=== PATIENT | male | born 1960 | race African-American/Black ===

== ENCOUNTER 2017-02-04 08:58 | Inpatient (IN) | payer OTHER ==
[2017-02-04 09:23] VITALS: BMI 23.3
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
[2017-02-04] MEDS ORDERED: MAG HYDROX/AL HYDROX/SIMETH 30 ML UNIT-DOSE CUP PO PRN (09:38)
[2017-02-04] MEDS ORDERED: IBUPROFEN 400 MG TABLET (FP) PO PRN (09:38)
[2017-02-04] MEDS ORDERED: MAGNESIUM HYDROX 2400MG/30ML ORAL SUSPENSION 30 ML CUP PO PRN (09:38)
[2017-02-04] MEDS ORDERED: ACETAMINOPHEN 325 MG TABLET (FP) PO PRN (09:38)
[2017-02-04] MEDS ORDERED: guaiFENesin/D-METHORPHAN HB 10 ML UNIT-DOSE CUPS PO PRN (09:38)
[2017-02-04] MEDS ORDERED: LOPERAMIDE HCL 2 MG CAPSULE PO PRN (09:38)
[2017-02-04] MEDS ORDERED: P-EPHED 60MG/TRIPROLIDI 2.5MG TABLET PO PRN (09:38)
[2017-02-04] MEDS ORDERED: MAGNESIUM CITRATE 300 ML BOTTLE PO PRN (09:38)
[2017-02-04] MEDS ORDERED: diphenhydrAMINE HCL 50 MG CAPSULE PO PRN (09:38)
[2017-02-04] MEDS ORDERED: chlordiazePOXIDE HCL 25 MG CAPSULE PO ONE (09:38)
[2017-02-04] MEDS ORDERED: MENTHOL/PHENOL 1 EACH UD MM PRN (09:38)
[2017-02-04] MEDS ORDERED: chlordiazePOXIDE HCL 25 MG CAPSULE PO PRN (09:38)
[2017-02-04] MEDS ORDERED: hydrOXYzine PAMOATE 25 MG CAPSULE (FP) PO PRN (09:38)
[2017-02-04] MEDS: PRENATAL VITAMINS W/ FOLIC ACID TABLET (FP) PO SCH (13:42)
[2017-02-04 13:57] LABS: URINE APPEARANCE CLEAR; URINE BILIRUBIN NEGATIVE (NEGATIVE); URINE BLOOD NEGATIVE (NEGATIVE); URINE COLOR YELLOW; URINE GLUCOSE (UA) NEGATIVE (NEGATIVE); URINE KETONE NEGATIVE (NEGATIVE); URINE LEUK ESTERASE NEGATIVE (NEGATIVE); URINE NITRITE NEGATIVE (NEGATIVE); URINE UROBILINOGEN NEGATIVE E.U./dl (0.2-1.0)
[2017-02-04 14:01] LABS: URINE PROTEIN 1+ (NEGATIVE)
[2017-02-04 14:04] LABS: URINE MUCUS RARE; URINE RBC 1 /hpf (0-3); URINE WBC 2 /hpf (3-5)
[2017-02-04] MEDS: chlordiazePOXIDE HCL 25 MG CAPSULE PO SCH ×2 (17:55→22:31)
[2017-02-04] MEDS ORDERED: THIAMINE HCL 100 MG TABLET (FP) PO SCH (22:00)
[2017-02-05] MEDS: chlordiazePOXIDE HCL 25 MG CAPSULE PO SCH ×2 (05:36→11:02)
[2017-02-05 10:48] LABS: MCH 30.7 pg (25.7-33.7); MCHC 33.2 g/dl (32.0-35.9); MEAN CELL VOLUME 92.3 fl (80-96); MEAN PLT VOLUME 8.8 fl (7.5-11.1); PLATELET COUNT 217 K/MM3 (134-434); RDW 16.6 % (11.9-15.9); WHITE BLOOD COUNT 5.2 K/mm3 (4.0-10.0)
[2017-02-05] MEDS: PRENATAL VITAMINS W/ FOLIC ACID TABLET (FP) PO SCH (11:02)
[2017-02-05 11:14] LABS: ALBUMIN 2.9 g/dl (3.4-5.0); ALK PHOS 77 U/L (45-117); ANION GAP 7 (8-16); BILIRUBIN,TOTAL 0.6 mg/dL (0.2-1.0); CALCIUM 8.5 mg/dL (8.5-10.1); CO2 27 mmol/L (21-32); COCKROFT - GAULT 126.16; CREATININE 0.7 mg/dL (0.7-1.3); GLUCOSE,RANDOM 88 mg/dL (74-106); SGOT/AST 29 U/L (15-37); SGPT/ALT 25 U/L (12-78); TOT PROT 5.8 g/dl (6.4-8.2)
--- NOTE | 2017-02-05 13:19 | PN ---
S CIWA - CIWA Score Nausea/Vomitin Muscle Tremors: 3 Anxiety: 3 Agitation: 3 Paroxysmal Sweats: 2 Orientation: 0-Oriented Tacttile Disturbances: 1-Very Mild Itch/Numbness Auditory Disturbances: 1-Very Mild Visual Disturbances: 1-Very Mild Sensitivity Headache: 2-Mild CIWA-Ar Total Score: 19 S Progress Note (SOAP) Subjective: ALERT,IRRITABLE,ANXIOUS,INTERRUPTED SLEEP,TREMOR,PAIN IN THE BODY Objective: 02/05/17 13:17 Vital Signs Temperature 96.9 F L 02/05/17 10:45 Pulse Rate 81 02/05/17 10:45 Respiratory Rate 18 02/05/17 10:45 Blood Pressure 139/89 02/05/17 10:45 O2 Sat by Pulse Oximetry (%) EKG NSR,INVERTED T IN V4 NO CHEST PAIN,NO SOB,NO DIZZINESS Laboratory Last Values WBC 5.2 K/mm3 (4.0-10.0) 02/05/17 08:00 RBC 3.90 M/mm3 (4.00-5.60) L 02/05/17 08:00 Hgb 12.0 GM/dL (11.7-16.9) 02/05/17 08:00 Hct 36.0 % (35.4-49) 02/05/17 08:00 MCV 92.3 fl (80-96) 02/05/17 08:00 MCHC 33.2 g/dl (32.0-35.9) 02/05/17 08:00 RDW 16.6 % (11.9-15.9) H 02/05/17 08:00 Plt Count 217 K/MM3 (134-434) D 02/05/17 08:00 MPV 8.8 fl (7.5-11.1) D 02/05/17 08:00 Sodium 142 mmol/L (136-145) 02/05/17 08:00 Potassium 4.0 mmol/L (3.5-5.1) 02/05/17 08:00 Chloride 108 mmol/L (98-107) H 02/05/17 08:00 Carbon Dioxide 27 mmol/L (21-32) 02/05/17 08:00 Anion Gap 7 (8-16) L 02/05/17 08:00 BUN 13 mg/dL (7-18) 02/05/17 08:00 Creatinine 0.7 mg/dL (0.7-1.3) D 02/05/17 08:00 Creat Clearance w eGFR > 60 (>60) 02/05/17 08:00 Random Glucose 88 mg/dL (74-106) D 02/05/17 08:00 Calcium 8.5 mg/dL (8.5-10.1) 02/05/17 08:00 Total Bilirubin 0.6 mg/dL (0.2-1.0) 02/05/17 08:00 AST 29 U/L (15-37) D 02/05/17 08:00 ALT 25 U/L (12-78) D 02/05/17 08:00 Alkaline Phosphatase 77 U/L (45-117) 02/05/17 08:00 Total Protein 5.8 g/dl (6.4-8.2) L D 02/05/17 08:00 Albumin 2.9 g/dl (3.4-5.0) L D 02/05/17 08:00 Urine Color Yellow 02/04/17 13:10 Urine Appearance Clear 02/04/17 13:10 Urine pH 6.0 (5.0-8.0) 02/04/17 13:10 Ur Specific [place] 1.029 (1.001-1.035) 02/04/17 13:10 Urine Protein 1+ (NEGATIVE) H 02/04/17 13:10 Urine Glucose (UA) Negative (NEGATIVE) 02/04/17 13:10 Urine Ketones Negative (NEGATIVE) 02/04/17 13:10 Urine Blood Negative (NEGATIVE) 02/04/17 13:10 Urine Nitrite Negative (NEGATIVE) 02/04/17 13:10 Urine Bilirubin Negative (NEGATIVE) 02/04/17 13:10 Urine Urobilinogen Negative E.U./dl (0.2-1.0) 02/04/17 13:10 Ur Leukocyte Esterase Negative (NEGATIVE) 02/04/17 13:10 Urine RBC 1 /hpf (0-3) 02/04/17 13:10 Urine WBC 2 /hpf (3-5) 02/04/17 13:10 Ur Epithelial Cells Rare /hpf (FEW) 02/04/17 13:10 Urine Mucus Rare 02/04/17 13:10 RPR Titer Nonreactive (NONREACTIVE) 02/05/17 08:00 Assessment: 02/05/17 13:18 WITHDRAWAL SYMPTOM Plan: CONTINUE DETOX
[2017-02-05] MEDS ORDERED: chlordiazePOXIDE HCL 25 MG CAPSULE PO SCH (17:00)
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
[2017-02-05 18:55] VITALS: BP 124/70; PULSE 68; TEMP 98.6
--- NOTE | 2017-02-05 19:31 | DS ---
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 ON UNIT, ADMINISTRATIVE DISCHARGE,ESCORTED OFF UNIT BY SECURITIES Pertinent Past History: NICOTINE DEPENDENCE - Physical Exam Results Vital Signs: Vital Signs Temperature 98.6 F 02/05/17 18:55 Pulse Rate 68 02/05/17 18:55 Respiratory Rate 18 02/05/17 18:55 Blood Pressure 124/70 02/05/17 18:55 O2 Sat by Pulse Oximetry (%) Pertinent Admission Physical Exam Findings: WITHDRAWAL SYMPTOM - Medication Discharge Medications: Ambulatory Orders NK [No Known Home Medication] 10/05/16 - Diagnosis (1) Cannabis dependence Current Visit: Yes Status: Acute (2) Alcohol dependence with uncomplicated withdrawal Current Visit: Yes Status: Chronic (3) Nicotine dependence Current Visit: Yes Status: Chronic Qualifiers: Nicotine product type: cigarettes Substance use status: uncomplicated Qualified Code(s): F17.210 - Nicotine dependence, cigarettes, uncomplicated - AMA Did Patient Leave Against Medical Advice: No
[2017-02-06] MEDS ORDERED: chlordiazePOXIDE 5 MG CAPSULE PO SCH (17:00)
--- NOTE | 2017-02-06 17:33 | EKG ---
Test Reason : Blood Pressure : / mmHG Vent. Rate : 070 BPM Atrial Rate : 070 BPM P-R Int : 174 ms QRS Dur : 124 ms QT Int : 402 ms P-R-T Axes : 056 -15 032 degrees QTc Int : 434 ms NORMAL SINUS RHYTHM NON-SPECIFIC INTRA-VENTRICULAR CONDUCTION DELAY NONSPECIFIC T WAVE ABNORMALITY ABNORMAL ECG WHEN COMPARED WITH ECG OF 04-FEB-2017 12:49, NO SIGNIFICANT CHANGE WAS FOUND Confirmed by NAN PENN, LEXIE ([id number]) on 02/06/2017 5:33:05 PM Referred By: Martin Simons Confirmed By:LEXIE MONTANA MD
--- NOTE | 2017-02-06 17:34 | EKG ---
Test Reason : Blood Pressure : / mmHG Vent. Rate : 054 BPM Atrial Rate : 107 BPM P-R Int : 164 ms QRS Dur : 112 ms QT Int : 418 ms P-R-T Axes : 055 007 030 degrees QTc Int : 396 ms SINUS BRADYCARDIA T WAVE ABNORMALITY, CONSIDER ANTERIOR ISCHEMIA ABNORMAL ECG NO PREVIOUS ECGS AVAILABLE CLINICAL CORRELATION IS RECOMMENDED Confirmed by NAN PENN, LEXIE ([id number]) on 02/06/2017 5:33:52 PM Referred By: Confirmed By:LEXIE MONTANA MD
[2017-02-07] MEDS ORDERED: chlordiazePOXIDE HCL 10 MG CAPSULE PO SCH (17:00)
== END 2017-02-05 18:40 | disposition home or self-care (01) | DRG 775 ==
LOC: YASAS 08:58 → Y6N 11:52
PROVIDERS: ADMIT Internal Medicine; ATTEND Internal Medicine Addiction Medicine
PROC: HZ2ZZZZ Detoxification Services for Substance Abuse Treatment (ICD-10-PCS; principal; 2017-02-04)
DX: F10.230 Alcohol dependence with withdrawal, uncomplicated (principal); F12.20 Cannabis dependence, uncomplicated; F17.210 Nicotine dependence, cigarettes, uncomplicated; J45.909 Unspecified asthma, uncomplicated; Z87.438 Personal history of other diseases of male genital organs; F91.8 Other conduct disorders
CPT/HCPCS: 36415; 80053; 81003; 81015; 85027; 86593; 93005; 93010

== ENCOUNTER 2018-03-07 11:25 | Inpatient (IN) | payer OTHER ==
[2018-03-07 13:45] VITALS: BMI 23.2
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
[2018-03-07] MEDS ORDERED: MENTHOL/PHENOL 1 EACH UD MM PRN (16:05)
[2018-03-07] MEDS ORDERED: guaiFENesin/D-METHORPHAN HB 10 ML UNIT-DOSE CUPS PO PRN (16:05)
[2018-03-07] MEDS ORDERED: LOPERAMIDE HCL 2 MG CAPSULE PO PRN (16:05)
[2018-03-07] MEDS ORDERED: P-EPHED 60MG/TRIPROLIDI 2.5MG TABLET PO PRN (16:05)
[2018-03-07] MEDS ORDERED: MAG HYDROX/AL HYDROX/SIMETH 30 ML UNIT-DOSE CUP PO PRN (16:05)
[2018-03-07] MEDS ORDERED: MAGNESIUM CITRATE 300 ML BOTTLE PO PRN (16:05)
[2018-03-07] MEDS ORDERED: chlordiazePOXIDE HCL 25 MG CAPSULE PO PRN (16:05)
[2018-03-07] MEDS ORDERED: MAGNESIUM HYDROX 2400MG/30ML ORAL SUSPENSION 30 ML CUP PO PRN (16:05)
[2018-03-07] MEDS ORDERED: ACETAMINOPHEN 325 MG TABLET (FP) PO PRN (16:05)
[2018-03-07] MEDS ORDERED: hydrOXYzine PAMOATE 25 MG CAPSULE (FP) PO PRN (16:05)
[2018-03-07] MEDS ORDERED: chlordiazePOXIDE HCL 25 MG CAPSULE PO ONE (16:45)
[2018-03-07] MEDS: CEPHALEXIN MONOHYDRATE 500 MG CAPSULE (UD) PO SCH ×2 (17:45→23:18)
[2018-03-07] MEDS: chlordiazePOXIDE HCL 25 MG CAPSULE PO SCH ×2 (17:49→22:30)
[2018-03-07] MEDS: IBUPROFEN 400 MG TABLET (FP) PO PRN (20:37)
[2018-03-07] MEDS ORDERED: MELATONIN 5 MG TABLETS PO PRN (22:00)
[2018-03-07] MEDS: THIAMINE HCL 100 MG TABLET (FP) PO SCH (22:30)
[2018-03-07 23:32] LABS: URINE APPEARANCE CLEAR; URINE BILIRUBIN NEGATIVE (<2.0 mg/dL); URINE COLOR YELLOW; URINE GLUCOSE (UA) NEGATIVE (NEGATIVE); URINE KETONE NEGATIVE (NEGATIVE); URINE LEUK ESTERASE NEGATIVE (NEGATIVE); URINE NITRITE NEGATIVE (NEGATIVE); URINE PROTEIN NEGATIVE (NEGATIVE); URINE UROBILINOGEN NEGATIVE mg/dL (0.2-1.0)
[2018-03-08] MEDS: CEPHALEXIN MONOHYDRATE 500 MG CAPSULE (UD) PO SCH ×4 (05:32→23:03)
[2018-03-08] MEDS: chlordiazePOXIDE HCL 25 MG CAPSULE PO SCH ×4 (05:32→22:26)
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
[2018-03-08] MEDS: PRENATAL VITAMINS W/ FOLIC ACID TABLET (FP) PO SCH (10:32)
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
[2018-03-08 11:14] LABS: HEMOGLOBIN 11.2 GM/dL (11.7-16.9)
[2018-03-08 11:17] LABS: HEMATOCRIT 32.8 % (35.4-49); MCH 32.1 pg (25.7-33.7); MCHC 34.1 g/dl (32.0-35.9); MEAN CELL VOLUME 94.1 fl (80-96); MEAN PLT VOLUME 8.5 fl (7.5-11.1); PLATELET COUNT 182 K/MM3 (134-434); RBC 3.48 M/mm3 (4.00-5.60); RDW 15.6 % (11.9-15.9); WHITE BLOOD COUNT 4.2 K/mm3 (4.0-10.0)
--- NOTE | 2018-03-08 12:02 | EKG ---
Test Reason : Blood Pressure : / mmHG Vent. Rate : 084 BPM Atrial Rate : 084 BPM P-R Int : 168 ms QRS Dur : 112 ms QT Int : 372 ms P-R-T Axes : 062 -24 055 degrees QTc Int : 439 ms NORMAL SINUS RHYTHM T WAVE ABNORMALITY, CONSIDER ANTERIOR ISCHEMIA ABNORMAL ECG WHEN COMPARED WITH ECG OF 04-FEB-2017 13:42, NO SIGNIFICANT CHANGE WAS FOUND Confirmed by RANDY RODRIGUEZ MD ([id number]) on 03/08/2018 12:01:59 PM Referred By: Confirmed By:RANDY RODRIGUEZ MD
[2018-03-08 12:04] LABS: ANION GAP 7 (8-16); BILIRUBIN,TOTAL 0.5 mg/dL (0.2-1.0); BLOOD UREA NITROGEN 15 mg/dL (7-18); CALCIUM 8.5 mg/dL (8.5-10.1); CHLORIDE 108 mmol/L (98-107); CO2 28 mmol/L (21-32); CREATININE 0.7 mg/dL (0.7-1.3); GLUCOSE,RANDOM 84 mg/dL (74-106); POTASSIUM 4.4 mmol/L (3.5-5.1); SGOT/AST 26 U/L (15-37); SGPT/ALT 18 U/L (12-78); SODIUM 143 mmol/L (136-145)
[2018-03-08 12:05] LABS: ALK PHOS 102 U/L (45-117)
[2018-03-08] MEDS: THIAMINE HCL 100 MG TABLET (FP) PO SCH (22:25)
[2018-03-09] MEDS: chlordiazePOXIDE HCL 25 MG CAPSULE PO SCH ×2 (05:23→10:38)
[2018-03-09] MEDS: CEPHALEXIN MONOHYDRATE 500 MG CAPSULE (UD) PO SCH ×4 (05:23→23:41)
[2018-03-09] MEDS: PRENATAL VITAMINS W/ FOLIC ACID TABLET (FP) PO SCH (10:38)
[2018-03-09] MEDS: chlordiazePOXIDE 5 MG CAPSULE PO SCH ×2 (17:30→22:30)
[2018-03-09] MEDS: IBUPROFEN 400 MG TABLET (FP) PO PRN (20:10)
[2018-03-09] MEDS: THIAMINE HCL 100 MG TABLET (FP) PO SCH (22:30)
[2018-03-10] MEDS: chlordiazePOXIDE 5 MG CAPSULE PO SCH ×2 (05:55→10:32)
[2018-03-10] MEDS: CEPHALEXIN MONOHYDRATE 500 MG CAPSULE (UD) PO SCH ×2 (05:56→12:10)
[2018-03-10 09:13] VITALS: BP 136/85; PULSE 73; TEMP 97.1
[2018-03-10] MEDS: PRENATAL VITAMINS W/ FOLIC ACID TABLET (FP) PO SCH (10:32)
[2018-03-10] MEDS ORDERED: CYCLOBENZAPRINE HCL 10 MG TABLET (FP) PO PRN (12:14)
[2018-03-10] MEDS ORDERED: chlordiazePOXIDE HCL 10 MG CAPSULE PO SCH (17:00)
--- NOTE | 2018-03-10 17:06 | PN ---
S CIWA - CIWA Score Nausea/Vomitin-No Nausea/No Vomiting Muscle Tremors: 2 Anxiety: 4-Mod. Anxious/Guarded Agitation: 4-Moderately Restless Paroxysmal Sweats: 2 Orientation: 0-Oriented Tacttile Disturbances: 2-Mild Itch/Numbness/Burn Auditory Disturbances: 0-None Visual Disturbances: 2-Mild Sensitivity Headache: 0-None Present CIWA-Ar Total Score: 16 BHS Progress Note (SOAP) Subjective: Body Aches, Anxious, Tremors. Objective: PATIENT A & O X 3, OBSERVED AMBULATING ON UNIT. NO ACUTE DISTRESS. 03/10/18 17:05 Vital Signs Temperature 97.1 F L 03/10/18 09:12 Pulse Rate 73 03/10/18 09:12 Respiratory Rate 20 03/10/18 09:12 Blood Pressure 136/85 03/10/18 09:12 O2 Sat by Pulse Oximetry (%) Laboratory Tests 03/07/18 03/08/18 03/08/18 23:20 07:00 07:00 WBC 4.2 RBC 3.48 L Hgb 11.2 L Hct 32.8 L MCV 94.1 MCH 32.1 MCHC 34.1 RDW 15.6 Plt Count 182 MPV 8.5 Sodium 143 Potassium 4.4 Chloride 108 H Carbon Dioxide 28 Anion Gap 7 L BUN 15 Creatinine 0.7 Creat Clearance w eGFR > 60 Random Glucose 84 Calcium 8.5 Total Bilirubin 0.5 AST 26 ALT 18 D Alkaline Phosphatase 102 D Total Protein 6.0 L Albumin 3.0 L Urine Color Yellow Urine Appearance Clear Urine pH 5.0 Ur Specific [place] 1.015 Urine Protein Negative Urine Glucose (UA) Negative Urine Ketones Negative Urine Blood Negative Urine Nitrite Negative Urine Bilirubin Negative Urine Urobilinogen Negative Ur Leukocyte Esterase Negative RPR Titer 03/08/18 07:00 WBC RBC Hgb Hct MCV MCH MCHC RDW Plt Count MPV Sodium Potassium Chloride Carbon Dioxide Anion Gap BUN Creatinine Creat Clearance w eGFR Random Glucose Calcium Total Bilirubin AST ALT Alkaline Phosphatase Total Protein Albumin Urine Color Urine Appearance Urine pH Ur Specific [place] Urine Protein Urine Glucose (UA) Urine Ketones Urine Blood Urine Nitrite Urine Bilirubin Urine Urobilinogen Ur Leukocyte Esterase RPR Titer Nonreactive LABS NOTED. Assessment: 03/10/18 17:05 WITHDRAWAL SYMPTOMS. Plan: CONTINUE DETOX.
--- NOTE | 2018-03-10 17:12 | DS ---
[facility] Detox Discharge Summary Admission Date: 03/07/18 Discharge Date: 03/10/18 - History Present History: Alcohol Dependence, Cannabis Dependence Additional Comments: PATIENT DOES NOT WISH TO STAY TO COMPLETE DETOX REGIMEN. RISKS OF LEAVING DETOX UNIT AGAINST MEDICAL ADVICE AND PRIOR TO COMPLETION OF DETOX REGIMEN EXPLAINED TO PATIENT. PRESCRIPTION FOR REMAINDER OF ANTIBIOTIC PRESCRIBED ON ADMISSION FOR CELLULITIS OF LEG (KEFLEX) SENT TO PATIENT'S PHARMACY ([facility], [place], [place] PATIENT ADVISED TO GO IMMEDIATELY TO NEAREST ER SHOULD ANY INTOLERABLE DETOX SYMPTOMS DEVELOP AT ANY TIME. PATIENT LEFT DETOX UNIT IN STABLE MEDICAL CONDITION. Pertinent Past History: Cellulitis of Right Leg, Dry Eyes, Nicotine Dependence, Weight Loss, Depression , Insomnia, Anxiety, History of Abdominal Surgery. - Physical Exam Results Vital Signs: Vital Signs Temperature 97.1 F L 03/10/18 09:12 Pulse Rate 73 03/10/18 09:12 Respiratory Rate 20 03/10/18 09:12 Blood Pressure 136/85 03/10/18 09:12 O2 Sat by Pulse Oximetry (%) Pertinent Admission Physical Exam Findings: WITHDRAWAL SYMPTOMS. Laboratory Tests 03/07/18 03/08/18 03/08/18 23:20 07:00 07:00 WBC 4.2 RBC 3.48 L Hgb 11.2 L Hct 32.8 L MCV 94.1 MCH 32.1 MCHC 34.1 RDW 15.6 Plt Count 182 MPV 8.5 Sodium 143 Potassium 4.4 Chloride 108 H Carbon Dioxide 28 Anion Gap 7 L BUN 15 Creatinine 0.7 Creat Clearance w eGFR > 60 Random Glucose 84 Calcium 8.5 Total Bilirubin 0.5 AST 26 ALT 18 D Alkaline Phosphatase 102 D Total Protein 6.0 L Albumin 3.0 L Urine Color Yellow Urine Appearance Clear Urine pH 5.0 Ur Specific [place] 1.015 Urine Protein Negative Urine Glucose (UA) Negative Urine Ketones Negative Urine Blood Negative Urine Nitrite Negative Urine Bilirubin Negative Urine Urobilinogen Negative Ur Leukocyte Esterase Negative RPR Titer 03/08/18 07:00 WBC RBC Hgb Hct MCV MCH MCHC RDW Plt Count MPV Sodium Potassium Chloride Carbon Dioxide Anion Gap BUN Creatinine Creat Clearance w eGFR Random Glucose Calcium Total Bilirubin AST ALT Alkaline Phosphatase Total Protein Albumin Urine Color Urine Appearance Urine pH Ur Specific [place] Urine Protein Urine Glucose (UA) Urine Ketones Urine Blood Urine Nitrite Urine Bilirubin Urine Urobilinogen Ur Leukocyte Esterase RPR Titer Nonreactive LABS NOTED. - Treatment Hospital Course: Detoxed Safely - Medication Discharge Medications: Ambulatory Orders Cephalexin [Keflex] 500 mg PO QID 5 Days #20 capsule 03/10/18 - Diagnosis (1) Alcohol dependence with uncomplicated withdrawal Status: Acute (2) Cannabis dependence Status: Acute (3) Cellulitis of leg, right Status: Acute (4) Dry eyes Status: Acute (5) Insomnia secondary to depression with anxiety Status: Acute (6) Nicotine dependence Status: Acute Qualifiers: Nicotine product type: cigarettes Substance use status: in withdrawal Qualified Code(s): F17.213 - Nicotine dependence, cigarettes, with withdrawal (7) Weight loss Status: Acute (8) Dry skin Status: Chronic (9) History of abdominal surgery Status: Chronic (10) Substance induced mood disorder Status: Acute - AMA Did Patient Leave Against Medical Advice: Yes (PATIENT DID NOT WISH TO STAY TO COMPLETE DETOX REGIMEN.)
== END 2018-03-10 13:26 | disposition left against medical advice (07) | DRG 770 ==
LOC: YASAS 11:25 → Y3N 16:04
PROVIDERS: ADMIT Internal Medicine; ATTEND Internal Medicine
PROC: HZ2ZZZZ Detoxification Services for Substance Abuse Treatment (ICD-10-PCS; principal; 2018-03-07)
DX: F10.230 Alcohol dependence with withdrawal, uncomplicated (principal); F12.20 Cannabis dependence, uncomplicated; F17.213 Nicotine dependence, cigarettes, with withdrawal; F19.24 Other psychoactive substance dependence with psychoactive substance-induced mood disorder; F51.05 Insomnia due to other mental disorder; L85.3 Xerosis cutis; L03.315 Cellulitis of perineum; R63.4 Abnormal weight loss; Z98.890 Other specified postprocedural states; Z68.23 Body mass index [BMI] 23.0-23.9, adult
CPT/HCPCS: 36415; 80053; 81003; 85027; 86593; 93005; 93010